=== PATIENT | male | born 1965 | race Hispanic/Latino ===

== ENCOUNTER 2023-12-13 05:44 | Day surgery (SDC) | payer OTHER ==
[2023-12-09 08:57] VITALS: BP 136/76; PULSE 75; RESP 18
[2023-12-09 09:03] LABS: BASOPHILS # (AUTO) 0.05 K/uL (0.00-0.20); BASOPHILS % (AUTO) 0.5 % (0.0-5.0); EOSINOPHILS % (AUTO) 2.8 % (0.0-8.0); IMMATURE GRANULOCYTE ABSOLUTE 0.04 K/uL (0-1); LYMPHOCYTES # (AUTO) 2.5 K/uL (1.0-4.8); LYMPHOCYTES % (AUTO) 23.3 % (21.0-51.0); MEAN CORPUSCULAR HGB CONC 35.7 g/dL (32.0-36.0); MEAN CORPUSCULAR VOLUME 86.7 fL (79-99); MONOCYTES # (AUTO) 0.9 K/uL (0.1-1.0); PLATELET COUNT (AUTO) 268 K/uL (130-400); RED BLOOD CELL COUNT(AUTO) 5.42 MIL/uL (4.50-6.20); RED CELL DISTRIBUTION WIDTH 12.7 % (11.0-15.5); WHITE BLOOD COUNT (AUTO) 10.8 K/uL (4.8-10.8)
[2023-12-09 09:18] LABS: CREATININE 0.8 mg/dL (0.5-1.3); POTASSIUM 3.6 mmol/L (3.5-5.1)
[~2023-12-13] VITALS: Ht 170.2 cm; Wt 100.4 kg
[2023-12-13] VITALS (15 sets, daily range): BP systolic 101–143; BP diastolic 55–82; PULSE 62–89; RESP 13–18
[~2023-12-13 05:44] MED LIST: LISI1TAB51 PO; METF-910 PO
[2023-12-13] MEDS ORDERED: METRONIDAZOLE 500MG/100ML BAG 200 ML ONE (06:25)
[2023-12-13] MEDS ORDERED: HYDROMORPHONE 1 MG INJ ONE (07:06)
[2023-12-13] MEDS ORDERED: FAMOTIDINE 20MG VIAL IV ONE (07:06)
[2023-12-13] MEDS ORDERED: PHENYLEPHRINE HCL 10 MG/ML 1ML VIAL IV ONE (07:07)
[2023-12-13] MEDS ORDERED: LIDOCAINE PF 100MG/5ML (2%) SYRINGE 5ML ONE (07:11)
[2023-12-13] MEDS ORDERED: GLYCOPYRROLATE 0.2 MG/ML 5 ML VIAL ONE (07:11)
[2023-12-13] MEDS ORDERED: NEOSTIGMINE METHYLSULFATE 1MG/ML IV ONE (07:11)
[2023-12-13] MEDS ORDERED: FENTANYL CITRATE PF 50 MCG/1 ML 2ML VIAL ONE (07:11)
[2023-12-13] MEDS ORDERED: ONDANSETRON 4MG INJ ONE (07:11)
[2023-12-13] MEDS ORDERED: PROPOFOL 10 MG/ML 20ML VIAL IV ONE (07:11)
[2023-12-13] MEDS ORDERED: MIDAZOLAM HCL 1 MG/ML 2ML VIAL ONE (07:12)
[2023-12-13] MEDS: CEFAZOLIN SODIUM 2 GM VIAL ONE (08:23)
[2023-12-13] MEDS: BUPIVACAINE/PF 0.25% 30ML VIAL IJ ONE (08:33)
[2023-12-13] MEDS: 0.9%NACL 1000ML 1,000 ML IV ONE (09:15)
[2023-12-13] MEDS ORDERED: IOHEXOL-350 50ML VIAL IV ONE (09:47)
== END 2023-12-13 11:05 | disposition home or self-care (01) ==
LOC: DAH 05:44
PROVIDERS: ATTEND Surgery
DX: K81.1 Chronic cholecystitis (principal); I10 Essential (primary) hypertension; E11.9 Type 2 diabetes mellitus without complications; Z72.89 Other problems related to lifestyle; Z79.84 Long term (current) use of oral hypoglycemic drugs; Z79.899 Other long term (current) drug therapy; Z87.891 Personal history of nicotine dependence
CPT/HCPCS: 86900 ×2; 80048; 85025; 86850 ×2; 86901 ×2; 36415 ×2; 93005; 47563; 82948 ×2; 88304; 74300; A6260; J0665; A4663; J7030 ×2; A4215 ×2; C1758; J3490 ×3; J3010; J1170; J2001; J2250; J2704; J2405; J2710; J2371; Q9967; J0690; C1769 ×3; A4649 ×2; A4657; A4213; A4222; A4221; A4216; A4223 ×2; A4600; G0168